=== PATIENT | female | born 1950 | race Caucasian/White ===

== ENCOUNTER 2016-10-30 13:34 | Emergency (ER) | payer BC, OTHER ==
[~2016-10-30] VITALS: Ht 162.6 cm; Wt 93.0 kg
[~2016-10-30 13:34] MED LIST: ASP81TEC PO; BISO1TAB41; CALTRATE; EST.625T PO; FRS325T PO; HCT25T PO; KCL10CCR PO; MULT1CAP27 PO; MULT1TAB63; NAPR250T34; SULF1TAB35 PO
--- NOTE | 2016-10-30 14:08 | ED Hip Pain/Injury ---
General Chief Complaint: Hip/Pelvic Problems Stated Complaint: LT HIP PAIN Nursing Triage Note: ARRIVED VIA WC WITH COMPLAINTS OF LEFT HIP PAIN. STATES SHE BENT OVER AND FELT LOTS OF "POPS" STATES SHE TOOK ARTHRITIS PAIN RELIEF BEFORE COMING TO THE ER. Source: patient Exam Limitations: no limitations History of Present Illness Time seen by provider: 14:06 Initial Comments To ER with reports of left hip pain. This began just earlier today when she bent over to last picker a small puppy. When she stood up she felt a popping sensation in her left hip. There was no fall. She has a numbness and sedation radiating down the leg to the foot. She does have a history of sciatic troubles on the left side for which she is currently seeing a chiropractor. Timing/Duration: just prior to arrival Severity: moderate Modifying Factors: Worse With Movement Allergies and Home Medications Allergies Coded Allergies: No Known Allergies (Verified Allergy, Unknown, 10/09/06) Home Medications Aspirin 81 Mg Tablet, 81 MG PO DAILY, Ref 0 (Reported) Estrogens,Conjugated 0.625 Mg Tablet, 1 TAB PO DAILY, Ref 0 (Reported) Ferrous Sulfate 325 Mg Tablet, 1 TAB PO DAILY, Ref 0 (Reported) Hydrochlorothiazide 25 Mg Tablet, 1 EACH PO DAILY, Ref 0 (Reported) Hydrocodone/Acetaminophen 1 Each Tablet, 1 EACH PO Q4H PRN for PAIN-SEVERE, #10 Prescribed by: EVE ACEVEDO on 10/30/16 1524 Multivitamins 1 Each Capsule, 1 EACH PO DAILY, (Reported) Potassium Chloride 10 Meq Capcr, 1 TAB PO DAILY, Ref 0 (Reported) Constitutional: see HPI EENTM: see HPI Respiratory: no symptoms reported Cardiovascular: no symptoms reported Genitourinary: no symptoms reported Musculoskeletal: see HPI, joint pain Skin: no symptoms reported Past Depmweu-Fpqrlm-Yngzuj Hx Patient Social History Alcohol Use: Denies Use Recreational Drug Use: No Smoking Status: Never a Smoker Recent Foreign Travel: No Contact w/Someone Who Travel: No Recent Infectious Disease Expo: No Surgeries Surgeries: Gallbladder, Hysterectomy, Orthopedic, Tubal Ligation Respiratory Hx Respiratory Disorders: No Cardiovascular Cardiac Disorders: Hypertension Neurological Hx Neurological Disorders: No Reproductive System Hx Reproductive Disorders: No Genitourinary Hx Genitourinary Disorders: No Musculoskeletal Musculoskeletal Disorders: Arthritis Endocrine Endocrine Disorders: Diabetes, Insulin dep HEENT HX ENT Disorders: No Physical Exam Vital Signs Vital Sign - Last 12Hours 10/30/16 13:50 Temp 98.0 Pulse 59 Resp 16 B/P (MAP) 126/68 Pulse Ox 100 Capillary Refill : Less Than 3 Seconds General Appearance: No Apparent Distress, WD/WN HEENT: PERRL/EOMI, TMs Normal Neck: Full Range of Motion, Normal Inspection Cardiovascular: Regular Rate, Rhythm, Normal Peripheral Pulses Respiratory: Normal Breath Sounds, No Accessory Muscle Use, No Respiratory Distress Gastrointestinal: Normal Bowel Sounds, Non Tender, Soft Extremity: Normal Capillary Refill, Normal Inspection, Other (there is no swelling or erythema to the left hip. There is tenderness to palpation. There is pain which causes a limited range of motion.) Neurologic/Psychiatric: Alert, Oriented x3, No Motor/Sensory Deficits Skin: Normal Color, Warm/Dry Progress/Results/Core Measures Results/Orders My Orders Orders - EVE ACEVEDO APRN Oxycodone/Apap 5/325mg Tablet (Percocet (10/30/16 14:15) Ct Extremity Lower Left Wo (10/30/16 14:01) Ketorolac Injection (Toradol Injection) (10/30/16 15:00) Orphenadrine Injection (Norflex Injectio (10/30/16 15:00) Mri Lt Lower Ext Joint W/O (10/30/16 15:47) Medications Given in ED Current Medications Medications Dose Ordered Sig/Su Route Start Time Stop Time Status Last Admin Dose Admin Ketorolac Tromethamine 60 mg ONCE ONCE IM 10/30/16 15:00 10/30/16 15:01 DC 10/30/16 14:57 60 MG Orphenadrine Citrate 60 mg ONCE ONCE IM 10/30/16 15:00 10/30/16 15:01 DC 10/30/16 14:56 60 MG Oxycodone/ Acetaminophen 1 tab ONCE ONCE PO 10/30/16 14:15 10/30/16 14:16 DC 10/30/16 14:09 1 TAB Vital Signs/I&O Vital Sign - Last 12Hours 10/30/16 13:50 Temp 98.0 Pulse 59 Resp 16 B/P (MAP) 126/68 Pulse Ox 100 Blood Pressure Mean: 87 Diagnostic Imaging Diagonstic Imaging: CT Comments NAME: WILY MOON Taiwo [facility] REC#: [id number] PT STATUS: REG ER : 1950 PHYSICIAN: EVE ACEVEDO APRN ADMIT DATE: 10/30/16/ER Draft Date of Exam:10/30/16 CT EXTREMITY LOWER LEFT WO PROCEDURE: CT left lower extremity without contrast. TECHNIQUE: Multiple contiguous axial images were obtained through the left lower extremity without the use of intravenous contrast. Sagittal and coronal reformations were then performed. INDICATION: Left hip pain. COMPARISON: None available. FINDINGS: There is no fracture of the proximal left femur or within the visible left hemipelvis. Hip is normal in alignment with mild osteoarthritic changes. No osteonecrosis of the femoral head. No acetabular retroversion. Normal femoral head neck offset. The left gluteus medius and minimus tendons are grossly normal by CT. The distal iliopsoas tendon appears intact. No large hip effusion. A normal fat plane surrounds the sciatic nerve within the sciatic notch and in the proximal thigh. No abnormal mass effect on the sciatic nerve. IMPRESSION: 1. No acute or concerning osseous abnormality about the left hip. 2. Mild osteoarthritis of the left hip. 3. No abnormal mass effect on the visualized aspects of the sciatic nerve in the sciatic notch or proximal thigh. Dictated on workstation # [id number] Dict: 10/30/16 1434 Trans: 10/30/16 1440 [facility] [id number] Interpreted by: MARIO WONG MD Electronically signed by: Departure Communication Progress Notes 1442 patient is back from CT. I discussed the CT results with her. She states her pain seems to be getting a little worse and is now radiating into the buttocks. I did discuss further imaging with MRI with the patient but she states that she would rather not do that due to her claustrophobia and historical troubles (anxiety) with getting into an MRI machine.- NAME: WILY MOON [facility] REC#: [id number] PT STATUS: REG ER : 1950 PHYSICIAN: EVE ACEVEDO APRN ADMIT DATE: 10/30/16/ER Draft Date of Exam:10/30/16 MRI LT LOWER EXT JOINT W/O PROCEDURE: MRI left joint lower extremity without contrast. TECHNIQUE: Multiplanar, multisequence non contrast-enhanced MRI of the left lower extremity was accomplished. INDICATION: Left hip pain. The patient bent down picking something on the floor and felt a pop near the hip region. FINDINGS: The femoral head and neck demonstrate normal signal with no avascular necrosis or fracture. There is no fracture in the acetabulum or abnormal marrow signal. There is no significant joint effusion. The iliopsoas tendon is normal. No distention of the iliopsoas bursa. There is increased signal in the insertion of the gluteus medius and gluteus minimus on the greater trochanter, which may relate to a low-grade partial tear or tendinosis. The origin of the hamstring muscles from the ischial tuberosity is normal in appearance. The signal in the muscles otherwise appear normal. No fluid collection is seen. IMPRESSION: Mild increased signal in the distal aspect of the left gluteus medius and gluteus minimus tendons near the insertion on the greater trochanter is seen. This could relate to a low-grade tear or tendinosis. Dictated on workstation # [id number] Dict: 10/30/16 1636 Trans: 10/30/16 1651 [facility] [id number] Interpreted by: MT COREY MD Electronically signed by: Impression Impression: Primary Impression: Hip pain, left Disposition: 01 HOME, SELF-CARE Condition: Stable Departure-Patient Inst. Decision time for Depature: 15:22 Referrals: CORY ARELLANO MD (PCP/Family) Primary Care Physician Patient Instructions: Hip Pain Add. Discharge Instructions: 1. Return to ER for any concerns 2. Follow-up with Dr. Arellano tomorrow for recheck 3. Pain medication as directed All discharge instructions reviewed with patient and/or family. Voiced understanding. Scripts Hydrocodone/Acetaminophen ([place] 5-325 Tablet) 1 Each Tablet 1 EACH PO Q4H Y for PAIN-SEVERE, #10 TAB Prov: EVE ACEVEDO APRN 10/30/16 EVE ACEVEDO APRN Oct 30, 2016 14:08
[2016-10-30] MEDS ORDERED: oxyCODONE/APAP 5/325MG (PERCOCET 5) TABLET PO ONE (14:15)
--- NOTE | 2016-10-30 14:41 | Diagnostic Imaging Report ---
PROCEDURE: CT left lower extremity without contrast. TECHNIQUE: Multiple contiguous axial images were obtained through the left lower extremity without the use of intravenous contrast. Sagittal and coronal reformations were then performed. INDICATION: Left hip pain. COMPARISON: None available. FINDINGS: There is no fracture of the proximal left femur or within the visible left hemipelvis. Hip is normal in alignment with mild osteoarthritic changes. No osteonecrosis of the femoral head. No acetabular retroversion. Normal femoral head neck offset. The left gluteus medius and minimus tendons are grossly normal by CT. The distal iliopsoas tendon appears intact. No large hip effusion. A normal fat plane surrounds the sciatic nerve within the sciatic notch and in the proximal thigh. No abnormal mass effect on the sciatic nerve. IMPRESSION: 1. No acute or concerning osseous abnormality about the left hip. 2. Mild osteoarthritis of the left hip. 3. No abnormal mass effect on the visualized aspects of the sciatic nerve in the sciatic notch or proximal thigh. Dictated by: Dictated on workstation # [id number]
[2016-10-30] MEDS ORDERED: KETOROLAC 60 MG/2 ML VIAL IM ONE (15:00)
[2016-10-30] MEDS ORDERED: ORPHENADRINE 60 MG/2 ML (NORFLEX) AMP IM ONE (15:00)
[2016-10-30] MEDS ORDERED: HYDR-757 PO (15:24)
--- NOTE | 2016-10-30 16:51 | Diagnostic Imaging Report ---
PROCEDURE: MRI left joint lower extremity without contrast. TECHNIQUE: Multiplanar, multisequence non contrast-enhanced MRI of the left lower extremity was accomplished. INDICATION: Left hip pain. The patient bent down picking something on the floor and felt a pop near the hip region. FINDINGS: The femoral head and neck demonstrate normal signal with no avascular necrosis or fracture. There is no fracture in the acetabulum or abnormal marrow signal. There is no significant joint effusion. The iliopsoas tendon is normal. No distention of the iliopsoas bursa. There is increased signal in the insertion of the gluteus medius and gluteus minimus on the greater trochanter, which may relate to a low-grade partial tear or tendinosis. The origin of the hamstring muscles from the ischial tuberosity is normal in appearance. The signal in the muscles otherwise appear normal. No fluid collection is seen. IMPRESSION: Mild increased signal in the distal aspect of the left gluteus medius and gluteus minimus tendons near the insertion on the greater trochanter is seen. This could relate to a low-grade tear or tendinosis. Dictated by: Dictated on workstation # [id number]
[2016-10-30 17:04] VITALS: BP 108/93
== END 2016-10-30 17:04 | disposition home or self-care (01) ==
LOC: EDUNIT# 13:34 → ER 13:39
DX: M25.552 Pain in left hip (principal); I10 Essential (primary) hypertension; Z79.82 Long term (current) use of aspirin; Z79.899 Other long term (current) drug therapy
CPT/HCPCS: 73700; 73721; 96372; 99284

== ENCOUNTER 2018-05-01 18:40 | Emergency (ER) | payer SELFPAY ==
[~2018-05-01] VITALS: Ht 165.1 cm; Wt 93.0 kg
[~2018-05-01 18:40] MED LIST changes: +HYDR-4226 PO
[2018-05-01] MEDS ORDERED: HYDROcodone/APAP 5 MG/325 MG (LORTAB) TAB PO ONE (19:15)
[2018-05-01] MEDS ORDERED: KETOROLAC 30 MG/ML VIAL IVP ONE (19:15)
--- NOTE | 2018-05-01 19:16 | ED Back Pain ---
General Chief Complaint: Back Problems Stated Complaint: R SIDE LOWER BACK PAIN Nursing Triage Note: PT AMBULATED TO FT2 WITH SOME DIFFICULTY. PT REPORTS HAVING NECK AND SHOULDER PAIN THAT STOPPED AFTER AN HOUR THIS AM. PT STATES THAT SHE IS HAVING SEVERE BACK PAIN THAT HAS NOW STARTED TO CAUSE HER TO URINATE VERY SMALL AMOUNTS WHEN SHE STANDS UP. PT RATES PAIN 9/10. PT DENIES ANY INJURY PRIOR TO PAIN. Nursing Sepsis Screen: No Definite Risk Source of Information: Patient Exam Limitations: No Limitations History of Present Illness Date Seen by Provider: May 01, 2018 Time Seen by Provider: 19:12 Initial Comments To ER with reports of right sided thoracic back pain/right flank. This began about 11 AM today. The pain initially radiated up into her neck and down the right arm and anteriorly into the right upper abdomen. The neck and arm pain resolved but it's still quite painful to the right posterior lower rib region. It is much worse with bending and twisting. Does not radiate down either leg and she does not notice any weakness or numbness down either leg. She does report that she's had some urinary incontinence more than usual today though she typically does have some when she coughs or sneezes. Location: T-Spine Timing/Duration: 4-6 Hours Severity: Moderate Pain/Injury Location: Back Method of Injury: Unknown Associated Symptoms: No fever, No numbness in legs/feet, No tingling in legs/ feet, No sensory/motor loss, No lower back pain; loss of bladder control; No loss of bowel control Allergies and Home Medications Allergies Coded Allergies: NKANo Known Allergies (Verified Allergy, Unknown, 05/01/18) Home Medications Aspirin 81 Mg Tablet, 81 MG PO DAILY, (Reported) Estrogens,Conjugated 0.625 Mg Tablet, 1 TAB PO DAILY, (Reported) Ferrous Sulfate 325 Mg Tablet, 1 TAB PO DAILY, (Reported) Hydrochlorothiazide 25 Mg Tablet, 1 EACH PO DAILY, (Reported) Hydrocodone/Acetaminophen 1 Each Tablet, 1 EACH PO Q4H PRN for PAIN-SEVERE Prescribed by: EVE ACEVEDO on 10/30/16 1524 Multivitamins 1 Each Capsule, 1 EACH PO DAILY, (Reported) Potassium Chloride 10 Meq Capcr, 1 TAB PO DAILY, (Reported) Patient Home Medication List Home Medication List Reviewed: Yes Review of Systems Constitutional: see HPI; No chills, No fever EENTM: see HPI Respiratory: see HPI; No cough, No dyspnea on exertion, No short of breath Cardiovascular: see HPI; No chest pain Genitourinary: no symptoms reported Musculoskeletal: see HPI Skin: no symptoms reported Psychiatric/Neurological: No Symptoms Reported Past Iclqcku-Uxmbow-Irjoov Hx Patient Social History Alcohol Use: Denies Use Recreational Drug Use: No Smoking Status: Never a Smoker Recent Foreign Travel: No Contact w/Someone Who Travel: No Recent Infectious Disease Expo: No Recent Hopitalizations: No Physical Abuse: No Sexual Abuse: No Seasonal Allergies Seasonal Allergies: No Past Medical History Surgeries: Yes (BACK) Gallbladder, Hysterectomy, Orthopedic, Tubal Ligation Respiratory: No Cardiac: Yes Hypertension Neurological: No Reproductive Disorders: No Genitourinary: No Gastrointestinal: No Musculoskeletal: Yes Arthritis Endocrine: Yes Diabetes, Insulin dep HEENT: No Psychosocial: No Integumentary: No Blood Disorders: Yes (ANEMIA) Physical Exam Vital Signs Vital Signs - First Documented 05/01/18 18:54 Temp 98.0 Pulse 62 Resp 12 B/P (MAP) 135/69 (91) Pulse Ox 98 Capillary Refill : Less Than 3 Seconds Height, Weight, BMI Height: 5'5.00" Weight: 205lbs. oz. 92.835139kh; BMI Method:Stated General Appearance: No Apparent Distress, WD/WN HEENT: PERRL/EOMI, TMs Normal Neck: Full Range of Motion, Normal Inspection Cardiovascular: Regular Rate, Rhythm, Normal Peripheral Pulses Respiratory: Lungs Clear, Normal Breath Sounds, No Accessory Muscle Use, No Respiratory Distress, Other (teary right lower rib and flank region is tender to palpation) Gastrointestinal: Normal Bowel Sounds, Non Tender, Soft Back: No Vertebral Tenderness Extremity: Normal Capillary Refill, Normal Inspection Neurologic/Psychiatric: Alert, Oriented x3 Skin: Normal Color, Warm/Dry Progress/Results/Core Measures Results/Orders Lab Results Laboratory Tests Test 05/01/18 19:10 05/01/18 19:27 Range/Units Urine Color YELLOW Urine Clarity CLEAR Urine pH 6.5 5-9 Urine Specific [place] 1.010 L 1.016-1.022 Urine Protein NEGATIVE NEGATIVE Urine Glucose (UA) NEGATIVE NEGATIVE Urine Ketones NEGATIVE NEGATIVE Urine Nitrite NEGATIVE NEGATIVE Urine Bilirubin NEGATIVE NEGATIVE Urine Urobilinogen 1 NORMAL MG/DL Urine Leukocyte Esterase NEGATIVE NEGATIVE Urine RBC (Auto) NEGATIVE NEGATIVE Urine RBC NONE /HPF Urine WBC NONE /HPF Urine Squamous Epithelial Cells 2-5 /HPF Urine Crystals NONE /LPF Urine Bacteria FEW H /HPF Urine Casts NONE /LPF Urine Mucus NEGATIVE /LPF Urine Culture Indicated NO White Blood Count 10.8 4.3-11.0 10^3/uL Red Blood Count 4.62 4.35-5.85 10^6/uL Hemoglobin 12.9 11.5-16.0 G/DL Hematocrit 39 35-52 % Mean Corpuscular Volume 83 80-99 FL Mean Corpuscular Hemoglobin 28 25-34 PG Mean Corpuscular Hemoglobin Concent 34 32-36 G/DL Red Cell Distribution Width 14.1 10.0-14.5 % Platelet Count 298 130-400 10^3/uL Mean Platelet Volume 11.7 H 7.4-10.4 FL Neutrophils (%) (Auto) 67 42-75 % Lymphocytes (%) (Auto) 22 12-44 % Monocytes (%) (Auto) 8 0-12 % Eosinophils (%) (Auto) 3 0-10 % Basophils (%) (Auto) 0 0-10 % Neutrophils # (Auto) 7.2 1.8-7.8 X 10^3 Lymphocytes # (Auto) 2.4 1.0-4.0 X 10^3 Monocytes # (Auto) 0.9 0.0-1.0 X 10^3 Eosinophils # (Auto) 0.3 0.0-0.3 10^3/uL Basophils # (Auto) 0.0 0.0-0.1 10^3/uL Sodium Level 139 135-145 MMOL/L Potassium Level 3.5 L 3.6-5.0 MMOL/L Chloride Level 104 98-107 MMOL/L Carbon Dioxide Level 21 21-32 MMOL/L Anion Gap 14 5-14 MMOL/L Blood Urea Nitrogen 21 H 7-18 MG/DL Creatinine 0.86 0.60-1.30 MG/DL Estimat Glomerular Filtration Rate > 60 BUN/Creatinine Ratio 24 Glucose Level 90 70-105 MG/DL Calcium Level 9.5 8.5-10.1 MG/DL Corrected Calcium 9.3 8.5-10.1 MG/DL Total Bilirubin 0.4 0.1-1.0 MG/DL Aspartate Amino Transf (AST/SGOT) 32 5-34 U/L Alanine Aminotransferase (ALT/SGPT) 21 0-55 U/L Alkaline Phosphatase 58 40-136 U/L Troponin I < 0.028 <0.028 NG/ML Total Protein 8.4 H 6.4-8.2 GM/DL Albumin 4.3 3.2-4.5 GM/DL Lipase 61 8-78 U/L My Orders Orders - EVE ACEVEDO APRN Ekg Tracing (05/01/18 19:11) Troponin I (05/01/18 19:11) Cbc With Automated Diff (05/01/18 19:11) Comprehensive Metabolic Panel (05/01/18 19:11) Lipase (05/01/18 19:11) Ua Culture If Indicated (05/01/18 19:11) Ketorolac Injection (Toradol Injection) (05/01/18 19:15) Hydrocodone/Apap 5/325 Tablet (Lortab 5 (05/01/18 19:15) Ct Abdomen/Pelvis Wo (05/01/18 19:32) Medications Given in ED Current Medications Medications Dose Ordered Sig/Su Route Start Time Stop Time Status Last Admin Dose Admin Acetaminophen/ Hydrocodone Bitart 1 tab ONCE ONCE PO 05/01/18 19:15 05/01/18 19:16 DC 05/01/18 19:28 1 TAB Ketorolac Tromethamine 30 mg ONCE ONCE IVP 05/01/18 19:15 05/01/18 19:16 DC 05/01/18 19:28 30 MG Vital Signs/I&O 05/01/18 18:54 Temp 98.0 Pulse 62 Resp 12 B/P (MAP) 135/69 (91) Pulse Ox 98 Blood Pressure Mean: 91 Departure Communication (Admissions) 4068-her pain is essentially gone at this point. Unfortunately I do not find a cause for it. Perhaps muscular. Either way she is ready to go home and agrees to return for any worsening symptoms. Impression Primary Impression: Right flank pain Disposition: HOME, SELF-CARE Condition: Stable Departure-Patient Inst. Decision time for Depature: 21:27 Referrals: CORY ARELLANO MD (PCP/Family) Primary Care Physician Patient Instructions: General (DC) Add. Discharge Instructions: 1. Return to ER for any concerns 2. Follow-up with your doctor next week 3. All discharge instructions reviewed with patient and/or family. Voiced understanding. EVE ACEVEDO APRN May 01, 2018 19:16
--- OUTSIDE RECORDS SUMMARY | 2018-05-01 19:16 | XMS REPORT ---
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 just that they are low. ESC RN PLAN OF CARE Activity Details Follow Up prn Reason: VITAL SIGNS Height 64.8 in 2017-01-20 Weight 211.2 lbs 2017-01-20 Temperature 97.8 degrees Fahrenheit 2017-01-20 Heart Rate 74 bpm 2017-01-20 Respiratory Rate 16 2017-01-20 BMI 35.36 kg/m2 2017-01-20 Blood pressure systolic 112 mmHg 2017-01-20 Blood pressure diastolic 66 mmHg 2017-01-20 MEDICATIONS Medication Instructions Dosage Frequency Start Date End Date Duration Status Low-Dose Aspirin 81 mg po Q Daily Dec, Active Metformin HCl 500 mg Orally Once a day 1 tablet with meals 24h Active potassium 1 tab Active Flax Seed Oil 1000 MG Active Levothyroxine Sodium 25 MCG Orally Once a day 1 tablet on an empty stomach in the morning 24h Active RESULTS Name Result Date Reference Range UA LONG DIP (IN HOUSE) 2017-01-20 Lot # [id number] Exp date 06/2017 Clarity clear Color dark yellow Odor none GLU neg ESTEBAN neg KET neg SG 1.025 BLO neg pH 6.0 Protein neg URO 0.2 EU./dL NIT neg EMELY Trace Lot # Exp date PROCEDURES Procedure Date Ordered Result Body Site URINALYSIS, AUTO, W/O SCOPE Jan 20, 2017 INSTRUCTIONS MEDICATIONS ADMINISTERED No Known Medications MEDICAL (GENERAL) HISTORY Type Description Date Medical History gallbladder Medical History carpal tunnel right hand Medical History trigger finger left (thumb) Medical History staph infection Surgical History gall bladder Surgical History carpla tunnel Hospitalization History with staph infection for 5 days
[2018-05-01 19:20] LABS: BILIRUBIN,URINE NEGATIVE (NEGATIVE); CLARITY,URINE CLEAR; COLOR,URINE YELLOW; GLUCOSE, URINE (UA) NEGATIVE (NEGATIVE); KETONES,URINE NEGATIVE (NEGATIVE); LEUKOCYTE ESTERASE ,URINE NEGATIVE (NEGATIVE); NITRITE,URINE NEGATIVE (NEGATIVE); PH,URINE 6.5 (5-9); PROTEIN,URINE NEGATIVE (NEGATIVE); UROBILINOGEN,URINE 1 MG/DL (NORMAL)
[2018-05-01 19:27] LABS: BACTERIA,URINE FEW /HPF
[2018-05-01 19:37] LABS: BASOPHILS % (AUTO) 0 % (0-10); EOSINOPHILS # (AUTO) 0.3 10^3/uL (0.0-0.3); EOSINOPHILS % (AUTO) 3 % (0-10); HEMATOCRIT 39 % (35-52); HEMOGLOBIN 12.9 G/DL (11.5-16.0); LYMPHOCYTES # (AUTO) 2.4 X 10^3 (1.0-4.0); LYMPHOCYTES % (AUTO) 22 % (12-44); MEAN CORPUSCULAR HEMOGLOBIN 28 PG (25-34); MEAN CORPUSCULAR HGB CONC 34 G/DL (32-36); MEAN CORPUSCULAR VOLUME 83 FL (80-99); MEAN PLATELET VOLUME 11.7 FL (7.4-10.4); MONOCYTES # (AUTO) 0.9 X 10^3 (0.0-1.0); MONOCYTES % (AUTO) 8 % (0-12); NEUTROPHILS # (AUTO) 7.2 X 10^3 (1.8-7.8); NEUTROPHILS % (AUTO) 67 % (42-75); PLATELET COUNT 298 10^3/uL (130-400); RED CELL DISTRIBUTION WIDTH 14.1 % (10.0-14.5); WHITE BLOOD COUNT 10.8 10^3/uL (4.3-11.0)
[2018-05-01 19:54] LABS: ALANINE AMINOTRANSFERASE 21 U/L (0-55); ALBUMIN 4.3 GM/DL (3.2-4.5); ALKALINE PHOSPHATASE 58 U/L (40-136); BILIRUBIN,TOTAL 0.4 MG/DL (0.1-1.0); BUN/CREATININE RATIO 24; CALCIUM 9.5 MG/DL (8.5-10.1); CARBON DIOXIDE 21 MMOL/L (21-32); CHLORIDE 104 MMOL/L (98-107); CREATININE SERUM 0.86 MG/DL (0.60-1.30); GFR ESTIMATED > 60; GLUCOSE 90 MG/DL (70-105); LIPASE 61 U/L (8-78); POTASSIUM 3.5 MMOL/L (3.6-5.0); SODIUM 139 MMOL/L (135-145); TOTAL PROTEIN 8.4 GM/DL (6.4-8.2)
--- NOTE | 2018-05-01 21:09 | Diagnostic Imaging Report ---
PROCEDURE: CT abdomen and pelvis without contrast. TECHNIQUE: Multiple contiguous axial images were obtained through the abdomen and pelvis without the use of intravenous contrast. INDICATION: Right-sided chest pain radiating down alongside the body, bladder incontinence. History of valve repair. EXAMINATION: CT abdomen and pelvis without contrast 05/01/2018 COMPARISON: 10/09/2006 FINDINGS: Visualized lung bases demonstrate chronic findings. The nonopacified abdominal viscera demonstrate no evidence for acute disease. The liver, spleen, adrenal glands and pancreas normal. Evidence of previous cholecystectomy noted. Kidneys demonstrate no acute findings. There is atherosclerotic disease in the aorta and its branches. No free fluid or air nor lymphadenopathy seen in the abdomen nor the pelvis. Urinary bladder decompressed. Wall thickening likely due to its decompressed nature although cystitis could cause a similar appearance; correlate with symptoms and urinalysis. Appendix unremarkable. No acute osseous findings. IMPRESSION: Chronic findings as described. Minimal wall thickening of the urinary bladder most likely due to underdistention, less likely due to cystitis, correlate with symptoms. Other findings as above. Dictated by: Dictated on workstation # [id number]
[2018-05-01] MEDS ORDERED: RX-HYDROCODONE/APAP 5/325 MG #4 TAB PK PO PRN (21:30)
[2018-05-01 21:35] VITALS: BP 135/69
== END 2018-05-01 21:34 | disposition home or self-care (01) ==
LOC: EDUNIT# 18:40 → ER 18:41
DX: R10.11 Right upper quadrant pain (principal); I10 Essential (primary) hypertension; E11.9 Type 2 diabetes mellitus without complications; D64.9 Anemia, unspecified; Z79.82 Long term (current) use of aspirin; Z90.710 Acquired absence of both cervix and uterus; Z98.51 Tubal ligation status; Z98.890 Other specified postprocedural states
CPT/HCPCS: 36415; 74176; 80053; 81000; 83690; 84484; 85025; 93005

== ENCOUNTER 2019-10-17 21:00 | Emergency (ER) | payer SELFPAY ==
[~2019-10-17] VITALS: Ht 162.5 cm; Wt 98.6 kg
[2019-10-17] MEDS ORDERED: NS IV 1000 ML 1,000 ML IV SCH (21:16)
[2019-10-17] MEDS ORDERED: ONDANSETRON 4 MG/2 ML (SDV) Z0FRAN IVP ONE (21:30)
--- OUTSIDE RECORDS SUMMARY | 2019-10-17 21:44 | XMS REPORT | Continuity of Care Document ---
Author Organization Unknown Address Unknown Phone Unavailable Allergies Active Description Code Type Severity Reaction Onset Reported/Identified Relationship to Patient Clinical Status Yes NKANo Known Allergies NKA Miscellaneous Allergy Unknown N/A 05/01/2018 Medications There is no data. 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 11/05/2016 EVE ACEVEDO APRN Ot Z79.899 OTHER COMMERCIAL CRABBER (CURRENT) DRUG THERAPY 05/01/2018 EVE ACEVEDO APRN Ot D64 .9 ANEMIA, UNSPECIFIED 05/01/2018 EVE ACEVEDO APRN Ot E11 .9 TYPE 2 DIABETES MELLITUS WITHOUT COMPLIC 05/01/2018 EVE ACEVEDO APRN Ot I10 ESSENTIAL (PRIMARY) HYPERTENSION 05/01/2018 EVE ACEVEDO APRN Ot M54 .6 PAIN IN THORACIC SPINE 05/01/2018 EVE ACEVEDO APRN Ot R10.11 RIGHT UPPER QUADRANT PAIN 05/01/2018 EVE ACEVEDO APRN Ot Z79.82 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 Results Test Result Range Complete urinalysis with reflex to cultu re - 05/01/18 19:10 Urine color determination YELLOW NRG Urine clarity determination CLEAR NR G Urine pH measurement by test strip 6.5 5-9 Specific gravity of urine by test strip 1.010 1.016-1.022 Urine protein assay by test strip, semi-quantitative NEGATIVE NEGATIVE Urine glucose detection by automated test strip NE GATIVE NEGATIVE Erythrocytes detection in urine sediment by light micr oscopy NEGATIVE NEGATIVE Urine ketones detection by automated test strip NE GATIVE NEGATIVE Urine nitrite detection by test strip NEGATIVE NEGATIVE Urine total bilirubin detection by test strip NEGA TIVE NEGATIVE Urine urobilinogen measurement by automated test strip (mass/volume) 1 mg/dL NORMAL Urine leukocyte esterase detection by dipstick NEG ATIVE NEGATIVE Automated urine sediment erythrocyte cou nt by microscopy (number/high power field) NONE NRG Automated urine sediment leukocyte count by microscopy (number/high power field) NONE NRG Bacteria detection in urine sediment by light microsco py FEW NRG Squamous epithelial cells detection in u rine sediment by light microscopy 2-5 NRG Crystals detection in urine sediment by light microsco py NONE NRG Casts detection in urine sediment by light microscopy NONE NRG Mucus detection in urine sediment by light microscopy NEGATIVE NRG Complete urinalysis with reflex to culture NO NRG Complete blood count (CBC) with automate d white blood cell (WBC) differential - 05/01/18 19:27 Blood leukocytes automated count (number/volume) 10.8 10*3/uL 4.3-11.0 Blood erythrocytes automated count (number/volume) 4.62 10*6/uL 4.35-5.85 Venous blood hemoglobin measurement (mass/volume) 12.9 g/dL 11.5-16.0 Blood hematocrit (volume fraction) 39 % 35-52 Automated erythrocyte mean corpuscular volume 83 [ foz_us] 80-99 Automated erythrocyte mean corpuscular h emoglobin (mass per erythrocyte) 28 pg 25-34 Automated erythrocyte mean corpuscular h emoglobin concentration measurement (mass/volume) 34 g/dL 32-36 Automated erythrocyte distribution width ratio 14. 1 % 10.0- 14.5 Automated blood platelet count (count/volume) 298 10*3/uL 130-400 Automated blood platelet mean volume measurement 11.7 [foz_us] 7.4-10.4 Automated blood neutrophils/100 leukocytes 67 % 42-75 Automated blood lymphocytes/100 leukocytes 22 % 12-44 Blood monocytes/100 leukocytes 8 % 0-12 Automated blood eosinophils/100 leukocytes 3 % 0-10 Automated blood basophils/100 leukocytes 0 % 0-10 Blood neutrophils automated count (number/volume) 7.2 10*3 1.8-7.8 Blood lymphocytes automated count (number/volume) 2.4 10*3 1.0-4.0 Blood monocytes automated count (number/volume) 0. 9 10*3 0.0-1.0 Automated eosinophil count 0.3 10*3/uL 0 .0-0.3 Automated blood basophil count (count/volume) 0.0 10*3/uL 0.0-0.1 Comprehensive metabolic panel - 05/01/18 19:27 Serum or plasma sodium measurement (moles/volume) 139 mmol/L 135-145 Serum or plasma potassium measurement (moles/volume) 3.5 mmol/L 3.6-5.0 Serum or plasma chloride measurement (moles/volume) 104 mmol/L 98-107 Carbon dioxide 21 mmol/L 21-32 Serum or plasma anion gap determination (moles/volume) 14 mmol/L 5-14 Serum or plasma urea nitrogen measurement (mass/volume ) 21 mg/dL 7-18 Serum or plasma creatinine measurement (mass/volume) 0.86 mg/dL 0.60-1.30 Serum or plasma urea nitrogen/creatinine mass ratio 24 NRG Serum or plasma creatinine measurement w ith calculation of estimated glomerular filtration rate > NRG Serum or plasma glucose measurement (mass/volume) 90 mg/dL 70-105 Serum or plasma calcium measurement (mass/volume) 9.5 mg/dL 8.5-10.1 Serum or plasma total bilirubin measurement (mass/volu me) 0.4 mg/dL 0.1-1.0 Serum or plasma alkaline phosphatase chloé surement (enzymatic activity/volume) 58 U/L 40-136 Serum or plasma aspartate aminotransfera se measurement (enzymatic activity/volume) 32 U/L 5-34 Serum or plasma alanine aminotransferase measurement (enzymatic activity/volume) 21 U/L 0-55 Serum or plasma protein measurement (mass/volume) 8.4 g/dL 6.4-8.2 Serum or plasma albumin measurement (mass/volume) 4.3 g/dL 3.2-4.5 CALCIUM CORRECTED 9.3 mg/dL 8.5-10.1 Serum or plasma troponin i.cardiac measu rement (mass/volume) - 05/01/18 19:27 Serum or plasma troponin i.cardiac measurement (mass/v olume) < ng/mL <0.028 Lipase - 05/01/18 19:27 Lipase 61 U/L 8-78 Capillary blood glucose measurement by g lucometer (mass/volume) - 10/17/19 21:32 Capillary blood glucose measurement by glucometer (mas s/volume) 184 mg/dL 70-110 Encounters ACCT No. Visit Date/Time Discharge Status Pt. Type Provider Facility Loc./Unit Complaint [id number] 01/20/2017 15:00:00 01/20/2017 23:59: 59 CLS Outpatient Omar Patel [facility] [place] [id number] 05/01/2018 18:41:00 019 21:34:00 DIS Emergency EVE AECVEDO APRN [facility] ER R SIDE LOWER BACK PAIN [id number] 10/30/2016 13:39:00 017 17:04:00 DIS Emergency EVE ACEVEDO APRN [facility] ER LT HIP PAIN [id number] 10/17/2019 21:39:00 Document Registration
--- NOTE | 2019-10-17 21:46 | ED GI ---
General Chief Complaint: Abdominal/GI Problems Stated Complaint: N/V, FEVER Nursing Triage Note: PT TO ROOM 10 VIA WHEELCHAIR. PT REPORTS SHE HAS VOMITING THAT STARTED APPROXIMATELY ONE HOUR AGO. SHE STATES SHE HAS HAD A TEMPERATURE BUT HAS NOT TAKEN IT WITH A THERMOMETER. PT STATES SHE HAS NOT TAKEN ANY MEDICATIONS AND HAS NOT BEEN EXPOSED TO ANYONE WITH COVID. Sepsis Screen: Possible Severe Sepsis Risk History of Present Illness Date Seen by Provider: Oct 17, 2019 Time Seen by Provider: 21:20 Initial Comments 69-year-old female reports eating breakfast today and then she developed some stomach discomfort and rested most of the day, not eating or drinking. Approximately 1600 she vomited and then tried to eat a ham sandwich which caused additional vomiting. She reports 3 episodes of vomiting prior to arrival. She has significant nausea and mild epigastric discomfort. She's had previous cholecystectomy, no other chronic abdominal problems or surgeries. She is a type II diabetic controlled with metformin and diet. She was constipated until earlier this morning when she had normal bowel movement. no fevers, cough, SOA or known COVID-19 exposure. She has been wearing a mask in public. Timing/Duration: 4-6 Hours Severity/Quality: Mild Location: [facility] Radiation: No Radiation Associated Symptoms: No Fever/Chills; Nausea/Vomiting; No Shortness of Air Allergies and Home Medications Allergies Coded Allergies: NKANo Known Allergies (Verified Allergy, Unknown, 05/01/18) Home Medications Aspirin 81 Mg Tablet, 81 MG PO DAILY, (Reported) Estrogens,Conjugated 0.625 Mg Tablet, 1 TAB PO DAILY, (Reported) Ferrous Sulfate 325 Mg Tablet, 1 TAB PO DAILY, (Reported) Hydrochlorothiazide 25 Mg Tablet, 1 EACH PO DAILY, (Reported) Hydrocodone/Acetaminophen 1 Each Tablet, 1 EACH PO Q4H PRN for PAIN-SEVERE Prescribed by: EVE ACEVEDO on 10/30/16 1524 Multivitamins 1 Each Capsule, 1 EACH PO DAILY, (Reported) Potassium Chloride 10 Meq Capcr, 1 TAB PO DAILY, (Reported) Sulfamethoxazole/Trimethoprim 1 Each Tablet, 1 EACH PO BID Prescribed by: ROSALIA HUDDLESTON on 10/17/19 2245 Patient Home Medication List Home Medication List Reviewed: Yes Review of Systems Review of Systems Constitutional: see HPI, malaise EENTM: No Symptoms Reported, See HPI Respiratory: No Symptoms Reported, See HPI; Denies Cough Cardiovascular: No Symptoms Reported, See HPI; Denies Chest Pain Gastrointestinal: See HPI, Abdominal Pain; Denies Diarrhea; Nausea, Poor Appetite, Vomiting All Other Systems Reviewed Negative Unless Noted: Yes Past Xovrzph-Xiwltd-Lxaxmy Hx Past Med/Social Hx: Reviewed Nursing Past Med/Soc Hx Patient Social History Recent Foreign Travel: No Contact w/Someone Who Travel: No Recent Infectious Disease Expo: No Recent Hopitalizations: No Seasonal Allergies Seasonal Allergies: No Past Medical History Surgeries: Yes (BACK) Gallbladder, Hysterectomy, Orthopedic, Tubal Ligation Respiratory: No Cardiac: Yes Hypertension Neurological: No : No Reproductive Disorders: No [employer] History: Hysterectomy Genitourinary: No Gastrointestinal: No Musculoskeletal: Yes Arthritis Endocrine: Yes Diabetes, Insulin dep HEENT: No Psychosocial: No Integumentary: No Blood Disorders: Yes (ANEMIA) Physical Exam Vital Signs Vital Signs - First Documented 10/17/19 21:16 Temp 35.3 Pulse 115 Resp 20 B/P (MAP) 141/95 (110) Pulse Ox 98 O2 Delivery Room Air Capillary Refill : Less Than 3 Seconds Height/Weight/BMI Height: 5'5.00" Weight: 205lbs. oz. 92.741403vo; 37.00 BMI Method:Stated General Appearance: WD/WN, no apparent distress HEENT: PERRL/EOMI, normal ENT inspection, TMs normal, pharynx normal Neck: non-tender, full range of motion, supple, normal inspection Respiratory: chest non-tender, lungs clear, normal breath sounds Cardiovascular: normal peripheral pulses, regular rate, rhythm Gastrointestinal: normal bowel sounds, soft; No distended, No guarding, No rebound; tenderness (epigastric) Extremities: normal range of motion, non-tender, normal inspection Back: normal inspection, no CVA tenderness Neurologic/Psychiatric: no motor/sensory deficits, alert, normal mood/affect, oriented x 3 Skin: normal color, warm/dry; No jaundice, No rash Progress/Results/Core Measures Results/Orders Lab Results Laboratory Tests Test 10/17/19 21:28 10/17/19 21:32 Range/Units White Blood Count 20.5 H 4.3-11.0 10^3/uL Red Blood Count 5.20 4.35-5.85 10^6/uL Hemoglobin 15.3 11.5-16.0 G/DL Hematocrit 44 35-52 % Mean Corpuscular Volume 85 80-99 FL Mean Corpuscular Hemoglobin 29 25-34 PG Mean Corpuscular Hemoglobin Concent 35 32-36 G/DL Red Cell Distribution Width 14.2 10.0-14.5 % Platelet Count 357 130-400 10^3/uL Mean Platelet Volume 11.9 H 7.4-10.4 FL Neutrophils (%) (Auto) 87 H 42-75 % Lymphocytes (%) (Auto) 8 L 12-44 % Monocytes (%) (Auto) 5 0-12 % Eosinophils (%) (Auto) 0 0-10 % Basophils (%) (Auto) 0 0-10 % Neutrophils # (Auto) 17.8 H 1.8-7.8 X 10^3 Lymphocytes # (Auto) 1.7 1.0-4.0 X 10^3 Monocytes # (Auto) 1.0 0.0-1.0 X 10^3 Eosinophils # (Auto) 0.1 0.0-0.3 10^3/uL Basophils # (Auto) 0.0 0.0-0.1 10^3/uL Neutrophils % (Manual) 84 % Lymphocytes % (Manual) 11 % Monocytes % (Manual) 5 % Smudge Cells SLIGHT Blood Morphology Comment NORMAL Urine Color ORANGE Urine Clarity CLOUDY Urine pH 5.5 5-9 Urine Specific Mascot >=1.030 1.016-1.022 Urine Protein 2+ H NEGATIVE Urine Glucose (UA) NEGATIVE NEGATIVE Urine Ketones TRACE H NEGATIVE Urine Nitrite NEGATIVE NEGATIVE Urine Bilirubin 2+ H NEGATIVE Urine Urobilinogen 1.0 < = 1.0 MG/DL Urine Leukocyte Esterase NEGATIVE NEGATIVE Urine RBC (Auto) TRACE-I NEGATIVE Urine RBC 2-5 H /HPF Urine WBC 2-5 /HPF Urine Squamous Epithelial Cells 5-10 /HPF Urine Crystals PRESENT H /LPF Urine Amorphous Sediment FEW LISA URATES H /LPF Urine Bacteria LARGE H /HPF Urine Casts NONE /LPF Urine Mucus LARGE H /LPF Urine Culture Indicated YES Sodium Level 135 135-145 MMOL/L Potassium Level 7.1 *H 3.6-5.0 MMOL/L Chloride Level 103 98-107 MMOL/L Carbon Dioxide Level 15 L 21-32 MMOL/L Anion Gap 17 H 5-14 MMOL/L Blood Urea Nitrogen 21 H 7-18 MG/DL Creatinine 1.06 0.60-1.30 MG/DL Estimat Glomerular Filtration Rate 52 BUN/Creatinine Ratio 20 Glucose Level 148 H 70-105 MG/DL Calcium Level 10.4 H 8.5-10.1 MG/DL Corrected Calcium 8.5-10.1 MG/DL Total Bilirubin < 0.1 L 0.1-1.0 MG/DL Aspartate Amino Transf (AST/SGOT) 61 H 5-34 U/L Alanine Aminotransferase (ALT/SGPT) 24 0-55 U/L Alkaline Phosphatase 51 40-136 U/L Total Protein 10.7 H 6.4-8.2 GM/DL Albumin 4.7 H 3.2-4.5 GM/DL Amylase Level 77 25-125 U/L Lipase 56 8-78 U/L Glucometer 184 H 70-110 MG/DL My Orders Orders - ROSALIA HUDDLESTON Cbc With Automated Diff (10/17/19 21:09) Comprehensive Metabolic Panel (10/17/19 21:09) Ua Culture If Indicated (10/17/19 21:09) Ondansetron Injection (Zofran Injectio (10/17/19 21:30) Ed Iv/Invasive Line Start (10/17/19 21:16) Ns Iv 1000 Ml (Sodium Chloride 0.9%) (10/17/19 21:16) Rx-Ondansetron Po (Rx-Zofran Po) (10/17/19 21:50) Manual Differential (10/17/19 21:28) Amylase (10/17/19 21:28) Lipase (10/17/19 21:28) Ns Iv 500 Ml (Sodium Chloride 0.9%) (10/17/19 22:16) Urine Culture (10/17/19 21:28) Rx-Trimeth/Sulfameth Ds Tab (Rx-Bactrim/ (10/17/19 22:43) Medications Given in ED Current Medications Medications Dose Ordered Sig/Su Route Start Time Stop Time Status Last Admin Dose Admin Ondansetron HCl 8 mg ONCE ONCE IVP 10/17/19 21:30 10/17/19 21:31 DC 10/17/19 21:37 8 MG Sodium Chloride 500 ml @ ud STK-MED ONCE .ROUTE 10/17/19 22:16 10/17/19 22:19 DC 7/20/20 22:20 999 MLS/HR Vital Signs/I&O 10/17/19 21:16 Temp 35.3 Pulse 115 Resp 20 B/P (MAP) 141/95 (110) Pulse Ox 98 O2 Delivery Room Air Blood Pressure Mean: 110 Progress Progress Note : Time: 21:20 Progress Note Patient seen and evaluated, will obtain labs, normal saline 1 L per IV and Zofran 8 mg IV. Accu-Chek 184, she reports vomiting after taking her Metformin. 2200 Patient reports to be feeling much better. Need UA. Will give sips of Pedialyte. 2209 K+ 7.1, patient is taking OTC Zinc and Potassium supplement. Will discontinue and follow up with PCP to recheck labs later this week. She has been experiencing muscle cramping and spasms in her legs. Will give NS 500 ml, while waiting on UA to run. Urine dark and concentrated. 2240 Urine shows UTI. will start Bractim DS. No n/v since IVF and Zofran. Discha rge instructions and return precautions reviewed with the patient. All questions answered. Departure Impression Primary Impression: Nausea and vomiting Qualified Codes: R11.2 - Nausea with vomiting, unspecified Additional Impressions: Abdominal pain Qualified Codes: R10.13 - Epigastric pain Hyperkalemia UTI (urinary tract infection) Qualified Codes: N30.01 - Acute cystitis with hematuria Disposition: HOME, SELF-CARE Condition: Improved Departure-Patient Inst. Decision time for Depature: 22:10 Referrals: CORY ARELLANO MD (PCP/Family) Primary Care Physician Patient Instructions: Hyperkalemia (DC), Nausea and Vomiting, Adult (DC), Severe Abdominal Pain, Adult (DC), Urinary Tract Infection, Adult (DC) Add. Discharge Instructions: Clear liquid diet for the next 6-8 hours then bland diet as tolerated. Take antibiotics, as prescribed. Increase water intake, tomorrow, 16 oz every 2 hours. Discontinue the Potassium supplement and get follow up labs with Dr. Arellano later this week. Use Zofran every 6-8 hours as needed for nausea and vomiting. Follow-up with Dr. Arellano if symptoms are not improving or worsen. Return to the emergency department for new, urgent health care problems. All discharge instructions reviewed with patient and/or family. Voiced understanding. Scripts Sulfamethoxazole/Trimethoprim (Bactrim Ds Tablet) 1 Each Tablet 1 EACH PO BID, #10 TAB 0 Refills Prov: ROSALIA HUDDLESTON 10/17/19 Copy Copies To 1: CORY ARELLANO MD, AMY ARNP Oct 17, 2019 21:45
[2019-10-17] MEDS ORDERED: RX-ONDANSETRON 4 MG ODT (ZOFRAN) PPK #4 PO STA (21:50)
[2019-10-17 21:53] LABS: BASOPHILS % (AUTO) 0 % (0-10); EOSINOPHILS # (AUTO) 0.1 10^3/uL (0.0-0.3); EOSINOPHILS % (AUTO) 0 % (0-10); HEMATOCRIT 44 % (35-52); HEMOGLOBIN 15.3 G/DL (11.5-16.0); LYMPHOCYTES # (AUTO) 1.7 X 10^3 (1.0-4.0); LYMPHOCYTES % (AUTO) 8 % (12-44); MEAN CORPUSCULAR HEMOGLOBIN 29 PG (25-34); MEAN CORPUSCULAR HGB CONC 35 G/DL (32-36); MEAN CORPUSCULAR VOLUME 85 FL (80-99); MEAN PLATELET VOLUME 11.9 FL (7.4-10.4); MONOCYTES % (AUTO) 5 % (0-12); NEUTROPHILS # (AUTO) 17.8 X 10^3 (1.8-7.8); NEUTROPHILS % (AUTO) 87 % (42-75); PLATELET COUNT 357 10^3/uL (130-400); RED CELL DISTRIBUTION WIDTH 14.2 % (10.0-14.5); WHITE BLOOD COUNT 20.5 10^3/uL (4.3-11.0)
[2019-10-17 21:56] LABS: ALBUMIN 4.7 GM/DL (3.2-4.5); CHLORIDE 103 MMOL/L (98-107); SODIUM 135 MMOL/L (135-145)
[2019-10-17 21:57] LABS: CALCIUM 10.4 MG/DL (8.5-10.1)
[2019-10-17 21:58] LABS: GLUCOSE 148 MG/DL (70-105); TOTAL PROTEIN 10.7 GM/DL (6.4-8.2)
[2019-10-17 22:00] LABS: CARBON DIOXIDE 15 MMOL/L (21-32)
[2019-10-17 22:01] LABS: AMYLASE 77 U/L (25-125)
[2019-10-17 22:02] LABS: ALKALINE PHOSPHATASE 51 U/L (40-136); CREATININE SERUM 1.06 MG/DL (0.60-1.30); GFR ESTIMATED 52
[2019-10-17 22:03] LABS: BUN/CREATININE RATIO 20
[2019-10-17 22:05] LABS: ALANINE AMINOTRANSFERASE 24 U/L (0-55)
[2019-10-17 22:10] LABS: LIPASE 56 U/L (8-78)
[2019-10-17 22:13] LABS: POTASSIUM 7.1 MMOL/L (3.6-5.0)
--- NOTE | 2019-10-17 22:13 | NUR ---
LAB CALLED WITH POTASSIUM RESULTS OF 7.1. THIS RN INFORMED ELIF LINDSEY OF LAB RESULTS.
[2019-10-17 22:16] LABS: LYMPHOCYTES % (MANUAL) 11 %; MONOCYTES % (MANUAL) 5 %; NEUTROPHILS % (MANUAL) 84 %; RBC MORPH NORMAL; SMUDGE CELLS SLIGHT
[2019-10-17] MEDS ORDERED: NS IV 500 ML 500 ML ONE (22:16)
[2019-10-17 22:28] LABS: CLARITY,URINE CLOUDY; COLOR,URINE ORANGE; GLUCOSE, URINE (UA) NEGATIVE (NEGATIVE); KETONES,URINE TRACE (NEGATIVE); LEUKOCYTE ESTERASE ,URINE NEGATIVE (NEGATIVE); NITRITE,URINE NEGATIVE (NEGATIVE); PH,URINE 5.5 (5-9); PROTEIN,URINE 2+ (NEGATIVE)
[2019-10-17 22:41] LABS: AMORPHOUS SEDIMENT,UR FEW AMOR URATES /LPF; BACTERIA,URINE LARGE /HPF
[2019-10-17 22:42] LABS: BILIRUBIN,URINE 2+ (NEGATIVE)
[2019-10-17] MEDS ORDERED: RX-TRIMETH/SULFA. 160-800 MG (BACTRIM DS) TAB PPK#2 PO STA (22:43)
[2019-10-17 22:45] VITALS: BP 141/95
[2019-10-17] MEDS ORDERED: SULF1TAB35 PO (22:45)
[2019-10-18 12:10] LABS: BILIRUBIN,TOTAL 0.6 MG/DL (0.1-1.0)
== END 2019-10-17 22:45 | disposition home or self-care (01) ==
LOC: EDUNIT# 21:00 → ER 21:02
DX: R11.2 Nausea with vomiting, unspecified (principal); R10.13 Epigastric pain; E87.5 Hyperkalemia; D64.9 Anemia, unspecified; I10 Essential (primary) hypertension; N39.0 Urinary tract infection, site not specified; Z79.82 Long term (current) use of aspirin
CPT/HCPCS: 36415; 80053; 81000; 82150; 82962; 83690; 85007; 85027; 87088

== ENCOUNTER 2021-09-11 17:27 | Observation (INO) | payer SELFPAY ==
[~2021-09-11] VITALS: Ht 160 cm; Wt 96.2 kg
[~2021-09-11 17:27] MED LIST changes: +SULF1TAB38 PO
--- NOTE | 2021-09-11 19:48 | ED General ---
General Chief Complaint: General Problems/Pain Stated Complaint: SORE THROAT, SWEATS Nursing Triage Note: ARRIVED VIA AMB TO TRIAGE WITHOUT DIFFICULTY. STATES SHE WAS SITTING OUTSIDE AND BROKE OUT INTO A SWEAT. SHE THEN WENT INTO THE AIR CONDITIONING AND HER THROAT BEGAN TO HURT. STATES SHE VOMITED BUT FEELS LIKE THERE IS A PEELING STUCK IN HER THROAT BUT DOES NOT BELIEVE THERE IS. ALSO STATES SHE FEELS SHAKEY. Source of Information: Patient Exam Limitations: No Limitations History of Present Illness Date Seen by Provider: Sep 11, 2021 Time Seen by Provider: 19:42 Initial Comments Patient is a 71-year-old female presents ED with right-sided neck pain, sore throat, ear pain difficulty swallowing. Symptoms started acutely this evening. She states she was sitting outside and started breaking out into a sweat and develops sore throat and throat pain. She started having severe right ear pain as well with radiation to the right side and neck. She states she did eat something right before and was unsure if something was clogged in her throat. She tried to cause herself to vomit which she did at one time with no relief. She reports pain with swallowing at this time. She denies any nasal ingestion, cough, runny nose, obvious neck swelling or redness, abdominal pain, diarrhea, chest pain, shortness of breath, fever. She did develop some chills and sweats that she was concerned about. Denies history of similar symptoms in the past. Attempted to go to her primary care physician but they were closed and came to the ED for further evaluation. Allergies and Home Medications Allergies Coded Allergies: NKANo Known Allergies (Verified Allergy, Unknown, 05/01/18) Patient Home Medication List Home Medication List Reviewed: Yes Aspirin (Aspirin Ec) 81 Mg Tablet, 81 MG PO DAILY, (Reported) Entered as Reported by: TAI HIGH on 10/09/061516 Estrogens,Conjugated (Premarin) 0.625 Mg Tablet, 1 TAB PO DAILY, (Reported) Entered as Reported by: TAI HIGH on 10/09/061516 Ferrous Sulfate (Iron) 325 Mg Tablet, 1 TAB PO DAILY, (Reported) Entered as Reported by: TAI HIGH on 10/09/061515 Hydrochlorothiazide (Hydrochlorothiazide) 25 Mg Tablet, 1 EACH PO DAILY, (Reported) Entered as Reported by: TAI HIGH on 7/13/07 1517 Hydrocodone/Acetaminophen (Hydrocodone/Acetaminophen 5 MG/325 MG TAB) 1 Each Tablet, 1 EACH PO Q4H PRN for PAIN-SEVERE Prescribed by: EVE ACEVEDO on 10/30/16 1524 Multivitamins (Multivitamins) 1 Each Capsule, 1 EACH PO DAILY, (Reported) Entered as Reported by: WILVER PALOMINO on 05/18/10 0837 Potassium Chloride (Klor-Con) 10 Meq Capcr, 1 TAB PO DAILY, (Reported) Entered as Reported by: TAI HIGH on 10/09/06 1518 Sulfamethoxazole/Trimethoprim (Bactrim Ds Tablet) 1 Each Tablet, 1 EACH PO BID Prescribed by: ROSALIA HUDDLESTON on 10/17/19 2191 Review of Systems Review of Systems Constitutional: chills, malaise; No weakness EENTM: ear pain, throat pain; No blurred vision, No double vision, No eye pain, No tearing, No vision loss, No nose pain Respiratory: No cough, No orthopnea, No short of breath Cardiovascular: No chest pain Gastrointestinal: No abdominal pain, No diarrhea, No nausea, No vomiting Genitourinary: No decreased output, No discharge Musculoskeletal: No back pain, No joint pain Skin: No change in color, No change in hair/nails All Other Systems Reviewed Negative Unless Noted: Yes Past Apvlhwh-Nqbkbe-Yluffx Hx Patient Social History Tobacco Use?: No Substance use?: No Alcohol Use?: No Immunizations Up To Date Tetanus Booster (TDap): More than 5yrs Seasonal Allergies Seasonal Allergies: No Past Medical History Surgeries: Yes (LT CARPAL TUNNEL RELEASE) Gallbladder, Hysterectomy, Orthopedic Respiratory: No Cardiac: Yes Hypertension Neurological: No Reproductive Disorders: No 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 Sexually Transmitted Disease: No HIV/AIDS: No Genitourinary: No Gastrointestinal: No Musculoskeletal: No Arthritis Endocrine: Yes Hypothyroidsim, Diabetes, Non-Insulin dep HEENT: No Cancer: No Psychosocial: No Integumentary: No Blood Disorders: No Family Medical History Cardiovascular disease G8 BROTHER G8 SISTER Diabetes mellitus G8 BROTHER G8 SISTER FH: COPD (chronic obstructive pulmonary disease) G8 BROTHER Myocardial infarction 19 MOTHER Physical Exam Vital Signs Vital Signs - First Documented 09/11/21 17:54 Temp 36.5 Pulse 86 Resp 16 B/P (MAP) 121/74 (90) Pulse Ox 97 O2 Delivery Room Air Capillary Refill : Less Than 3 Seconds Height, Weight, BMI Height: 5'5.00" Weight: 205lbs. oz. 92.881085kk; 37.00 BMI Method:Stated General Appearance: No Apparent Distress, WD/WN Eyes: Bilateral Eye Normal Inspection, Bilateral Eye PERRL, Bilateral Eye EOMI HEENT: Other (Right oropharynx with erythema and swelling with slight uvula deviation to the left. Right-sided neck swelling with out enlarged lymphadenopathy. 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 Norm as Tested Skin: Normal Color, Warm/Dry Progress/Results/Core Measures Suspected Sepsis SIRS Temperature: Pulse: 86 Respiratory Rate: 16 Laboratory Tests 09/11/21 20:00: White Blood Count 16.1H Blood Pressure 121 /74 Mean: 90 Laboratory Tests 09/11/21 20:00: Creatinine 1.23, Platelet Count 287, Total Bilirubin 0.4 Results/Orders Lab Results Laboratory Tests Test 09/11/21 19:30 09/11/21 20:00 09/11/21 20:05 Range/Units Influenza Type A (RT-PCR) Not Detected Not Detecte Influenza Type B (RT-PCR) Not Detected Not Detecte SARS-CoV-2 RNA (RT-PCR) Not Detected Not Detecte White Blood Count 16.1 H 4.3-11.0 10^3/uL Red Blood Count 4.86 3.80-5.11 10^6/uL Hemoglobin 13.8 11.5-16.0 g/dL Hematocrit 41 35-52 % Mean Corpuscular Volume 85 80-99 fL Mean Corpuscular Hemoglobin 28 25-34 pg Mean Corpuscular Hemoglobin Concent 34 32-36 g/dL Red Cell Distribution Width 13.1 10.0-14.5 % Platelet Count 287 130-400 10^3/uL Mean Platelet Volume 12.1 9.0-12.2 fL Immature Granulocyte % (Auto) 0 % Neutrophils (%) (Auto) 78 H 42-75 % Lymphocytes (%) (Auto) 11 L 12-44 % Monocytes (%) (Auto) 9 0-12 % Eosinophils (%) (Auto) 1 0-10 % Basophils (%) (Auto) 0 0-10 % Neutrophils # (Auto) 12.6 H 1.8-7.8 10^3/uL Lymphocytes # (Auto) 1.8 1.0-4.0 10^3/uL Monocytes # (Auto) 1.5 H 0.0-1.0 10^3/uL Eosinophils # (Auto) 0.2 0.0-0.3 10^3/uL Basophils # (Auto) 0.1 0.0-0.1 10^3/uL Immature Granulocyte # (Auto) 0.1 0.0-0.1 10^3/uL Neutrophils % (Manual) 70 % Lymphocytes % (Manual) 17 % Monocytes % (Manual) 13 % Microcytosis SLIGHT Sodium Level 139 135-145 MMOL/L Potassium Level 3.8 3.6-5.0 MMOL/L Chloride Level 106 98-107 MMOL/L Carbon Dioxide Level 20 L 21-32 MMOL/L Anion Gap 13 5-14 MMOL/L Blood Urea Nitrogen 19 H 7-18 MG/DL Creatinine 1.23 0.60-1.30 MG/DL Estimat Glomerular Filtration Rate 48 BUN/Creatinine Ratio 15 Glucose Level 124 H 70-105 MG/DL Calcium Level 9.9 8.5-10.1 MG/DL Corrected Calcium 9.8 8.5-10.1 MG/DL Total Bilirubin 0.4 0.1-1.0 MG/DL Aspartate Amino Transf (AST/SGOT) 21 5-34 U/L Alanine Aminotransferase (ALT/SGPT) 19 0-55 U/L Alkaline Phosphatase 50 40-136 U/L Total Protein 8.3 H 6.4-8.2 GM/DL Albumin 4.1 3.2-4.5 GM/DL Group A Streptococcus Screen NEGATIVE NEGATIVE My Orders Orders - COLLETTE FLORES Cbc With Automated Diff (09/11/21 19:39) Comprehensive Metabolic Panel (09/11/21 19:39) Ct Neck (Soft Tissue) W (09/11/21 19:39) Rapid Strep A Screen (09/11/21 19:39) Covid 19 Inhouse Test (09/11/21 19:39) Influenza A And B By Pcr (09/11/21 19:39) Iv/Invasive Line Insertion .IV start (09/11/21 19:39) Dexamethasone Injection (Decadron Inje (09/11/21 19:45) Manual Differential (09/11/21 20:00) Iohexol Injection (Omnipaque 350 Mg/Ml 1 (09/11/21 21:00) Received Contrast (Hold Metformin- Contr (09/11/21 21:00) Ns (Ivpb) (Sodium Chloride 0.9% Ivpb Bag (09/11/21 21:00) Ampicillin/Sulbactam Injection (Unasyn 3 (09/11/21 21:30) Medications Given in ED Current Medications Medications Dose Ordered Sig/Su Route Start Time Stop Time Status Last Admin Dose Admin Dexamethasone Sodium Phosphate 10 mg ONCE ONCE IV 09/11/21 19:45 09/11/21 19:46 DC 09/11/21 20:09 10 MG Iohexol 100 ml ONCE ONCE IV 09/11/21 21:00 09/11/21 21:01 DC 09/11/21 20:48 75 ML Sodium Chloride 100 ml ONCE ONCE IV 09/11/21 21:00 09/11/21 21:01 DC 09/11/21 20:48 80 ML Vital Signs/I&O 09/11/21 17:54 Temp 36.5 Pulse 86 Resp 16 B/P (MAP) 121/74 (90) Pulse Ox 97 O2 Delivery Room Air Capillary Refill : Less Than 3 Seconds Blood Pressure Mean: 90 Departure Communication (PCP) Patient will be admitted to Dr. Hilario. Recommends Tylenol and Unasyn. ENT consult may be needed. Concerning for developing tonsillar abscess Enlarged right palatine tonsil containing cystic changes and calcification there is some edema extending down to the right pharyngeal wall to the level of the Larynx. Concerning for infectious etiology. Strep a was negative. COVID influenza negative. Elevated white blood count concerning for infection. CT scan did show probable high-grade narrowing the right internal carotid artery. Recommend nonemergent follow-up with carotid Doppler ultrasound. Due to the difficulty swallowing and the pain location concerning that this may progressively worsen possible early abscess. Patient was started on Unasyn after discussion with hospitalist Dr. Hilario. Tylenol for pain. Patient agrees with this plan of action Impression Primary Impression: Tonsillopharyngitis Disposition: 01 HOME, SELF-CARE Condition: Stable Admissions Decision to Admit Reason: Admit from ER (General) Decision to Admit/Date: Sep 11, 2021 Time/Decision to Admit Time: 21:27 Departure-Patient Inst. Referrals: CORY ARELLANO MD (PCP/Family) Primary Care Physician COLLETTE FLORES Sep 11, 2021 19:48
[2021-09-11 20:14] LABS: BASOPHILS # (AUTO) 0.1 10^3/uL (0.0-0.1); BASOPHILS % (AUTO) 0 % (0-10); EOSINOPHILS # (AUTO) 0.2 10^3/uL (0.0-0.3); EOSINOPHILS % (AUTO) 1 % (0-10); HEMATOCRIT 41 % (35-52); HEMOGLOBIN 13.8 g/dL (11.5-16.0); LYMPHOCYTES # (AUTO) 1.8 10^3/uL (1.0-4.0); LYMPHOCYTES % (AUTO) 11 % (12-44); MEAN CORPUSCULAR HEMOGLOBIN 28 pg (25-34); MEAN CORPUSCULAR HGB CONC 34 g/dL (32-36); MEAN CORPUSCULAR VOLUME 85 fL (80-99); MEAN PLATELET VOLUME 12.1 fL (9.0-12.2); MONOCYTES # (AUTO) 1.5 10^3/uL (0.0-1.0); MONOCYTES % (AUTO) 9 % (0-12); NEUTROPHILS # (AUTO) 12.6 10^3/uL (1.8-7.8); NEUTROPHILS % (AUTO) 78 % (42-75); PLATELET COUNT 287 10^3/uL (130-400); WHITE BLOOD COUNT 16.1 10^3/uL (4.3-11.0)
[2021-09-11 20:28] LABS: ALBUMIN 4.1 GM/DL (3.2-4.5); BILIRUBIN,TOTAL 0.4 MG/DL (0.1-1.0); CALCIUM 9.9 MG/DL (8.5-10.1); CREATININE SERUM 1.23 MG/DL (0.60-1.30); POTASSIUM 3.8 MMOL/L (3.6-5.0); TOTAL PROTEIN 8.3 GM/DL (6.4-8.2)
[2021-09-11] MEDS ORDERED: HOLD METFORMIN - RECEIVED CONTRAST 20 ML VIAL IV SCH (21:00)
[2021-09-11] MEDS ORDERED: IOHEXOL 350 MG/ML 100 ML (OMNIPAQUE 350) VIAL IV ONE (21:00)
[2021-09-11] MEDS ORDERED: NS 100 ML (IVPB) BAG IV ONE (21:00)
--- NOTE | 2021-09-11 21:06 | Diagnostic Imaging Report ---
PROCEDURE: CT neck soft tissue with contrast. TECHNIQUE: Multiple contiguous axial images were obtained through the neck after the administration of contrast. Auto Exposure Controls were utilized during the CT exam to meet ALARA standards for radiation dose reduction. INDICATION: Right-sided neck pain and swelling. COMPARISON: None. FINDINGS: Multiple punctate calcifications in the right parotid gland. Inflammatory change in the right parotid gland. No parotid duct dilatation or radiopaque densities. The left parotid gland and submandibular glands are negative. Diminutive versus postoperative thyroid. No cervical lymphadenopathy. Enlarged right palatine tonsil measures 2.2 x 1.9 cm and contains cystic-appearing regions and calcifications. There is some edema extending down the right oropharynx to the level of the larynx. The floor of the mouth, tongue base, epiglottis and retropharyngeal space are negative. Moderate atherosclerotic calcifications in the carotid bifurcations. There is likely high-grade narrowing of the right internal carotid artery origin. The lung apices are clear. Visualized intracranial contents and orbits are unremarkable. Visualized paranasal sinuses and mastoids are clear. Moderate to severe spondylotic changes at C5-C7. These likely result in high-grade spinal canal stenosis at C5-C6 and C6-C7. IMPRESSION: 1. Enlarged right palatine tonsil containing cystic changes and calcification. There is some edema extending down the right pharyngeal wall to the level of the larynx. Although findings may be infectious/inflammatory, malignancy is not excluded and follow-up to resolution is recommended. No cervical lymphadenopathy. 2. Probable high-grade narrowing of the right internal carotid artery origin. Recommend nonemergent follow-up with carotid Doppler ultrasound. 3. Spondylotic changes at C5-C7 likely result in high-grade spinal canal stenosis. This could be further investigated with MRI, if clinically warranted. 4. Right parotid sialoliths. No evidence of parotid inflammation or ductal obstruction. Dictated by: Dictated on workstation # [id number]
[2021-09-11 21:22] LABS: LYMPHOCYTES % (MANUAL) 17 %; MICROCYTOSIS SLIGHT; MONOCYTES % (MANUAL) 13 %; NEUTROPHILS % (MANUAL) 70 %
[2021-09-11] MEDS ORDERED: AMPICILLIN/SULBACTAM INJECTION 3 GM in NS (IVPB) 100 ML IV ONE (21:30)
[2021-09-11 22:52] VITALS: BP 139/67
[2021-09-11 23:10] VITALS: BP 135/67
[2021-09-12] MEDS ORDERED: ACETAMINOPHEN 500 MG TAB (TYLENOL) PO PRN (00:15)
[2021-09-12] MEDS: AMPICILLIN/SULBACTAM 3 GM/NS 100 ML IVPB IV SCH ×4 (03:48→09:26)
[2021-09-12 04:00] VITALS: BP 154/81
[2021-09-12] MEDS ORDERED: CATHETER FLUSH 10 ML SYR IVP SCH (06:00)
[2021-09-12 06:13] LABS: BASOPHILS % (AUTO) 0 % (0-10); EOSINOPHILS % (AUTO) 0 % (0-10); HEMATOCRIT 41 % (35-52); HEMOGLOBIN 13.7 g/dL (11.5-16.0); LYMPHOCYTES % (AUTO) 8 % (12-44); MEAN CORPUSCULAR HEMOGLOBIN 28 pg (25-34); MEAN CORPUSCULAR HGB CONC 33 g/dL (32-36); MEAN CORPUSCULAR VOLUME 86 fL (80-99); MEAN PLATELET VOLUME 12.3 fL (9.0-12.2); MONOCYTES # (AUTO) 0.2 10^3/uL (0.0-1.0); MONOCYTES % (AUTO) 2 % (0-12); NEUTROPHILS # (AUTO) 11.1 10^3/uL (1.8-7.8); NEUTROPHILS % (AUTO) 90 % (42-75); PLATELET COUNT 262 10^3/uL (130-400); WHITE BLOOD COUNT 12.4 10^3/uL (4.3-11.0)
[2021-09-12 06:36] LABS: POTASSIUM 3.9 MMOL/L (3.6-5.0)
[2021-09-12 06:37] LABS: CALCIUM 9.9 MG/DL (8.5-10.1)
[2021-09-12 06:41] LABS: CREATININE SERUM 0.88 MG/DL (0.60-1.30)
[2021-09-12 07:45] VITALS: BP 123/75
--- NOTE | 2021-09-12 10:38 | Discharge Inst-Simple/Standard ---
Discharge Inst-Standard Discharge Medications New, Converted or Re-Newed RX: Transmitted to Pharmacy Patient Instructions/Follow Up Plan of Care/Instructions/FU: Please continue to take your medications as written. Please follow up with your primary care doctor to follow up this hospital stay. Activity as Tolerated: Yes Discharge Diet: ADA Diet Return to The Hospital For: Throat swelling, difficulty breathing, chest pain, shortness of breath, fever, weakness, if you feel you are getting worse. TOM MARINELLI MD Sep 12, 2021 10:38
[2021-09-12] MEDS ORDERED: AMOX1TAB12 PO (10:41)
--- NOTE | 2021-09-12 10:52 | Short Stay Summary-Hospitalist ---
History of Present Illness HPI/Chief Complaint Patient is 71-year-old female past medical history of noncemented diabetes type 2, hypertension who presented to the hospital due to throat pain. She reports that for a day or so she has had some ear pain and a little bit of a sore throat but last night it acutely worsened. She was sitting outside and all of a sudden broke out into a sweat got a severe sore throat. She had just eaten something and thought that maybe it was stuck in her throat so she induced vomiting but this did not help. She decided to seek evaluation and went to her primary care's office but it was closed so she came to the emergency department. CT neck was obtained which revealed an enlarged palatine tonsil without abscess but some edema. This morning she reports feeling much better and has no further symptoms. She is requesting discharge home. She has been able to eat and drink without issue Date Seen 09/12/21 Time Seen by a Provider: 10:15 Attending Physician Cory Arellano MD PCP Admitting Physician: Sagar Hilario MD Attending Physician: Sagar Hilario MD Referring Physician Date of Admission Sep 11, 2021 at 21:25 Home Medications & Allergies Home Medications Reviewed patient Home Medication Reconciliation performed by pharmacy medication reconciliations photonics engineering technician and/or nursing. Patients Allergies have been reviewed. Allergies Allergies Coded Allergies NKANo Known Allergies (Verified Allergy, Unknown, 05/01/18) Past Zdgprtr-Lofrjf-Xativm Hx Patient Social History Tobacco Use?: No Smoking Status: Never a Smoker Smokeless Tobacco Frequency: Never a User Use of E-Cig and/or Vaping dev: No Substance use?: No Alcohol Use?: No Pt feels they are or have been: No Immunizations Up To Date Hepatitis A: No Hepatitis B: Yes Seasonal Allergies Seasonal Allergies: No Current Status status: No status: No Advance Directives: Unable to obtain Communicates: Verbally Primary Language: Filipino Preferred Spoken Language: Filipino Is interpretation needed?: No Implanted or Applied Medical D: None Past Medical History Surgeries: Gallbladder, Hysterectomy, Orthopedic 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 Sexually Transmitted Disease: No HIV/AIDS: No Arthritis Hypothyroidsim, Diabetes, Non-Insulin dep Blood Disorders: No Family Medical History Cardiovascular disease G8 BROTHER G8 SISTER Diabetes mellitus G8 BROTHER G8 SISTER FH: COPD (chronic obstructive pulmonary disease) G8 BROTHER Myocardial infarction 19 MOTHER Review of Systems Constitutional: chills, diaphoresis; No fever EENTM: see HPI Respiratory: No cough, No short of breath Cardiovascular: no symptoms reported Gastrointestinal: no symptoms reported Genitourinary: no symptoms reported Musculoskeletal: no symptoms reported Skin: other (onychomycosis) Psychiatric/Neurological: No Symptoms Reported Physical Exam Physical Exam Vital Signs Vital Signs - First Documented 09/11/21 17:54 Temp 36.5 Pulse 86 Resp 16 B/P (MAP) 121/74 (90) Pulse Ox 97 O2 Delivery Room Air Capillary Refill : Less Than 3 Seconds Height, Weight, BMI Height: 5'5.00" Weight: 205lbs. oz. 92.508107zt; 37.57 BMI Method:Stated General Appearance: No Apparent Distress, WD/WN, Obese Eyes: Bilateral Eye Normal Inspection, Bilateral Eye PERRL, Bilateral Eye EOMI HEENT: PERRL/EOMI, Pharynx Normal, Moist Mucous Membranes; No Pharyngeal Erythema, No Scleral Icterus (L), No Scleral Icterus (R); Other (Right oropharynx with erythema and swelling with slight uvula deviation to the left. Right-sided neck swelling with out enlarged lymphadenopathy. Right TM with serous fluid without evidence of bulging TM erythema, exudate.) Neck: Normal Inspection, Supple Respiratory: Chest Non Tender, Lungs Clear, Normal Breath Sounds, No Accessory Muscle Use, No Respiratory Distress Cardiovascular: Regular Rate, Rhythm, No JVD, No Murmur Gastrointestinal: Normal Bowel Sounds, Non Tender, Soft; No Distended, No Guarding Extremity: Normal Capillary Refill, Normal Inspection, No Calf Tenderness, No Pedal Edema; No Swelling Neurologic/Psychiatric: Alert, Oriented x3, Normal Mood/Affect; No Aphasia, No Facial Droop Skin: Normal Color, Warm/Dry Results Results/Procedures Labs Laboratory Tests 09/11/21 20:00 09/12/21 06:09 Patient resulted labs reviewed. Imaging: Reviewed Imaging Report Imaging [facility] [place] NAME: WILY MOON [facility] REC#: [id number] PT STATUS: REG ER : 1950 PHYSICIAN: COLLETTE FLORES ADMIT DATE: 09/11/21/ER Signed Date of Exam:09/11/21 CT NECK (SOFT TISSUE) W PROCEDURE: CT neck soft tissue with contrast. TECHNIQUE: Multiple contiguous axial images were obtained through the neck after the administration of contrast. Auto Exposure Controls were utilized during the CT exam to meet ALARA standards for radiation dose reduction. INDICATION: Right-sided neck pain and swelling. COMPARISON: None. FINDINGS: Multiple punctate calcifications in the right parotid gland. Inflammatory change in the right parotid gland. No parotid duct dilatation or radiopaque densities. The left parotid gland and submandibular glands are negative. Diminutive versus postoperative thyroid. No cervical lymphadenopathy. Enlarged right palatine tonsil measures 2.2 x 1.9 cm and contains cystic-appearing regions and calcifications. There is some edema extending down the right oropharynx to the level of the larynx. The floor of the mouth, tongue base, epiglottis and retropharyngeal space are negative. Moderate atherosclerotic calcifications in the carotid bifurcations. There is likely high-grade narrowing of the right internal carotid artery origin. The lung apices are clear. Visualized intracranial contents and orbits are unremarkable. Visualized paranasal sinuses and mastoids are clear. Moderate to severe spondylotic changes at C5-C7. These likely result in high-grade spinal canal stenosis at C5-C6 and C6-C7. IMPRESSION: 1. Enlarged right palatine tonsil containing cystic changes and calcification. There is some edema extending down the right pharyngeal wall to the level of the larynx. Although findings may be infectious/inflammatory, malignancy is not excluded and follow-up to resolution is recommended. No cervical lymphadenopathy. 2. Probable high-grade narrowing of the right internal carotid artery origin. Recommend nonemergent follow-up with carotid Doppler ultrasound. 3. Spondylotic changes at C5-C7 likely result in high-grade spinal canal stenosis. This could be further investigated with MRI, if clinically warranted. 4. Right parotid sialoliths. No evidence of parotid inflammation or ductal obstruction. Dictated by: Dictated on workstation # [id number] Dict: 09/11/212055 Trans: 09/11/212207 [facility] [id number] Interpreted by: LOGAN RICHEY MD Electronically signed by: LOGAN RICHEY MD 09/11/212207 Short Stay Diagnosis Discharge Diagnosis-Short Stay Admission Diagnosis Tonsillopharyngitis Final Discharge Diagnosis Tonsillopharyngitis Conclusion Plan Tonsillopharyngitis Responded well to IV abx No abscess on CT Discussed with her PCP regarding findings, recommended follow up with PCP to patient Oral abx sent, advised continue probiotics as well Will DC home Diagnosis/Problems Diagnosis/Problems (1) Tonsillopharyngitis Status: Acute Copy Copies To 1: CORY ARELLAON MD, KATELYN M MD Sep 12, 2021 10:52
[2021-09-12 11:07] VITALS: BP 130/69
[2021-09-12] MEDS ORDERED: POTA2TAB5 PO (13:33)
[2021-09-12] MEDS ORDERED: ESTR1TAB24 PO (13:33)
[2021-09-12] MEDS ORDERED: BISO-3 PO (13:33)
[2021-09-12] MEDS ORDERED: LEVO175T5 PO (13:33)
[2021-09-12] MEDS ORDERED: METF-865 PO (13:33)
[2021-09-12] MEDS ORDERED: LACT1CAP74 PO (13:33)
[2021-09-12] MEDS ORDERED: FERR-84 PO (13:33)
[2021-09-12 14:17] VITALS: BP 130/69
== END 2021-09-12 14:00 | disposition left against medical advice (07) ==
LOC: EDUNIT# 17:27 → ER 17:30 → 4TH 21:25
PROVIDERS: ADMIT Internal Medicine; ATTEND Internal Medicine
DX: J02.9 Acute pharyngitis, unspecified (principal)
CPT/HCPCS: 36415; 70491; 80048; 80053; 85007; 85025; 85027; 87430; 87636; 96365; 96366; 96375; 96376; G0378